=== PATIENT | female | born 1955 | race Caucasian/White ===

== ENCOUNTER → 2017-05-05 | Day surgery (SDC) | payer BC, OTHER ==
[~2017-05-05] MED LIST: BUPIVACAINE/EPINEPHRINE 0.25% PF 30 ML VIAL INFIL ONE; IBUP-232 PO; KETOROLAC TROMETHAMINE 30 MG/ML (IVP) VIAL IV PUSH ONE; LEVO.025 PO; LIDOCAINE HCL 1% 50 ML VIAL ONE; LOSA25TA31 PO; MIDAZOLAM HCL 2 MG/2 ML VIAL ONE; ONDANSETRON HCL 4 MG/2 ML VIAL IV PUSH ONE; PROPOFOL 200 MG/20 ML AMP IV ONE; SODIUM CHLOR 0.9% 1000 ML BAG IV ONE; TRAM50 PO; VANCOMYCIN HCL 1000 MG VIAL ONE
--- NOTE | 2017-05-05 14:36 | PD.OP ---
cc: Curt Ariza Jr., MD Operative Report Date of Surgery: May 05, 2017 Preoperative Diagnosis: left knee medial meniscal tear Postoperative Diagnosis: same Procedure: left knee arthroscopy with partial medial menistectomy Surgeon: Curt Ariza [employer](s): staff Resident Surgeon: none Operation and Findings: The patient was taken to the operating room. anesthesia was induced. The LEFT extremity was sterilely prepped and draped. Examination under anesthesia was normal. Arthroscopy introduced in the parapatellar working portal. This suprapatella pouch was found to have no structural abnormality. Medial and lateral gutters as well as the lateral joint space were within normal limits without any loose bodies. The patellofemoral articulation track well. The notch was examined and anterior cruciate and posterior cruciate ligaments were intact. Medial compartment was inspected and there was significant diffuse grade 3 and 4 degeneration throughout the medial compartment on the medial femoral and tibial condyle. A complex posterior horn medial meniscal tear was identified. This was debrided back to smooth stable rim with an up-biting punch and shaver. There was no incarcerated fragment posterior medially. The anterior horn of the medial meniscus was inspected and had significant degeneration. Arthroscope introduced into the lateral compartment, which showed mild chondromalacia grade 1 fissuring and softening over the lateral plateau and femoral condyle. The lateral meniscus was carefully probed and was normal. The popliteus was intact. The wounds were copiously irrigated and closed with nylon. Sterile dressing applied. Patient tolerated procedure well and there were no complications. Curt Ariza Jr., MD May 05, 2017 14:36
== END | disposition home or self-care (01) ==
LOC: ESDC 11:34
PROVIDERS: ATTEND Orthopaedic Surgery
DX: S83.232A Complex tear of medial meniscus, current injury, left knee, initial encounter (principal)
CPT/HCPCS: 01400; 29881; J1885; J2250; J2405; J3010; J3370; J7030